=== PATIENT | female | born 1975 | race Caucasian/White ===

== ENCOUNTER → 2023-12-29 00:29 | Outpatient (CLI) | payer OTHER, SELFPAY ==
--- NOTE | 2023-12-29 | DI.MAMMO_ITS ---
Exam(s) MAMMO SCREENING EXAM: MAMMO SCREENING CLINICAL HISTORY: Z12.31 Screening, FA HX mother Breast CA 2X's. TECHNIQUE: Bilateral full field digital CC and MLO mammographic images were obtained with 3D tomosyn thesis and utilizing computer aided detection (CAD). COMPARISON: Prior outside mammograms were reviewed. FINDINGS: There has been no significant change in the appearance and distribution of the fibroglandular tissue. There are no CAD designations. There are no new spiculated masses nor malignant appearing microcalcification groups. There is no significant architectural distortion nor skin thickening-retraction. IMPRESSION: No radiographic evidence of malignancy. BI-RADS Category 1 - Negative Breast Density - Category B - Scattered areas of fibroglandular density Breast density Category C or D implies that the patient has dense breast tissue. Dense breast tissue can make it harder to find cancer on a mammogram. Dense breast tissue is also associated with an incr eased risk of breast cancer. This information about the result of the mammogram report was provided to the patient to raise their awareness. Use this report when you speak with the patient about their risks for breast cancer, which includes their family history. At that time, you may recommend additional screening tests (Ultrasoun d or MRI) as these tests may add significant information. A negative radiographic report should not delay biopsy if a dominant or clinically suspicious mass is present. Up to ten percent of cancers are not identified on mammography. A negative report may reinforce clinical impression. Adenosis and dense breasts may obscure an underlying neoplasm. False positive reports average 6 to 10%. Patient will receive a letter notifying them of these results.
--- OUTSIDE RECORDS SUMMARY | 2023-12-29 00:59 | XMS_ITS | Encounter Summary ---
Author Organization [facility] Address [address] [place] [address] Care Team Providers Care Workcell Operator Name Role Phone Taran Albert MD Primary Care Provider [phone] Encounter Details Date Type Department Care Team (Late st Contact Info) Description 06/28/2007 Results Only [facility] - Maple conversion [address] [place] [address] Ruba Bass MD [address] [place] [address] 2 [place] [address] Social History Tobacco Use Types Packs/Day Years Used Date Smoking Tobacco: Never Assessed Sex and Gender Information Value Date Recorded Sex Assigned at Not on file Gender Identity Not on file Sexual Orientation Not on file documented as of this encounter Plan of Treatment Not on file documented as of this encounter Procedures Procedure Name Priority Date/Time Associated Diagnosis Comments HPV DETECTION, HIGH RISK TYPES Routine 06/28/2007 8:17 EST CYTOPATHOLOGY Routine 06/28/2007 0:00 EST documented in this encounter Results * HUMAN PAPILLOMA VIRUS DNA TEST (06/28/2007 8:17 EST) Specimen Description Cervix, ThinPrep vial [facility] Result Negative for HPV types 16, 18, 31, 33, 35, 39, 45, 51, 52, 56, 58, 59, and 68. [facility] Report Status Final [id number] [facility] 06/28/2007 8:17 EST 07/04/2007 8:17 EST Ruba Bass MD MICROBIOLOGY - GENER AL ORDERABLES [facility] [address] [place] [address] * CYTOPATHOLOGY (06/28/2007 0:00 EST) Pathology Report: CYTOPATHOLOGY REPORT Reports generated via electronic interface contain original data; however they are lacking the format of the original report. Caution should be taken when reading/interpreti ng unformatted reports. Name: ? DAGO BARILLAS ? Accession #: ? [id number] : ? 1975 (Age: 31) ??F ?Collect Date: ? 06/28/2007 Location: ? [facility] ? Receive Date: ? 06/29/2007 Provider: ?RUBA BASS MD Copy to: ? Specimen/Source: ?ThinPrep Pap Test, Cervix/Endocervix, processed on [employer] ThinPrep Imaging System, with manual evaluation Last Menstrual Period: ? 05/25 Other: ? HPVDX - HPV testing requested regardless of diagnosis on current ThinPrep Pap test. ? SPECIMEN ADEQUACY ? Satisfactory for Evaluation - transformation zone component present - scant squamous epithelial component secondary to excessive blood GENERAL CATEGORIZATION ? Negative for Intraepithelial Lesion or Malignancy ? Document reviewed and electronically signed by: ? JUAN J Benoit(ASCP) ? Report Date: ??07/03/2007 13:48 End of Report [facility] 06/28/2007 06/29/2007 Ruba Bass MD PATHOLOGY ORDERABLES [facility] [address] [place] [address] documented in this encounter Visit Diagnoses Not on filedocumented in this encounter Care Teams Workcell Operator Relationship Specialty Start Date End Date Taran Albert MD [address] [place] [address],[address] [place] [address] PCP - General 10/22/09 documented as of this encounter
--- OUTSIDE RECORDS SUMMARY | 2023-12-29 00:59 | XMS_ITS | Encounter Summary ---
Author Organization [facility] Address [address] [place] [address] Care Team Providers Care Homeopathic Doctor Name Role Phone Taran Albert MD Primary Care Provider [phone] Encounter Details Date Type Department Care Team (Late st Contact Info) Description 11/24/2009 Results Only [facility] PRISM [phone] Jason Bass MD [address] [place] [address] [address] [place], [place] [id number] Social History Tobacco Use Types Packs/Day Years Used Date Smoking Tobacco: Never Assessed Sex and Gender Information Value Date Recorded Sex Assigned at Not on file Gender Identity Not on file Sexual Orientation Not on file documented as of this encounter Plan of Treatment Not on file documented as of this encounter Visit Diagnoses Not on filedocumented in this encounter Care Teams Homeopathic Doctor Relationship Specialty Start Date End Date Taran Albert MD [address] [place] [address] ,[address] [place] [address] PCP - General 10/22/09 documented as of this encounter
--- OUTSIDE RECORDS SUMMARY | 2023-12-29 00:59 | XMS_ITS | Clinical Summary ---
Author Organization [facility] Address [address] [place] [address] Care Team Providers Care Retail Personal Banker Name Role Phone Taran Albert MD Primary Care Provider [phone] Social History Tobacco Use Types Packs/Day Years Used Date Smoking Tobacco: Never Assessed Sex and Gender Information Value Date Recorded Sex Assigned at Not on file Gender Identity Not on file Sexual Orientation Not on file Plan of Treatment Health Maintenance Due Date Last Done Comments Hepatitis C Screen 1975 Hepatitis B Vaccine (1 of 3 - 19+ 3-dose series) 12/11 COVID-19 Vaccine ( season) 2023 Care Teams Retail Personal Banker Relationship Specialty Start Date End Date Taran Albert MD [address] [place] [address],[address] [place] [address] PCP - General 10/22/09
--- OUTSIDE RECORDS SUMMARY | 2023-12-29 00:59 | XMS_ITS | Encounter Summary ---
Author Organization [facility] Address [address] [place] [address] Care Team Providers Care Systems Requirements Planner Name Role Phone Taran Albert MD Primary Care Provider [phone] Encounter Details Date Type Department Care Team (Late st Contact Info) Description 08/23/2007 Before PRISM Converted Visit (Maple) [facility] - Maple conversion [address] [place] [address] Jason Bass MD [address] [place] [address] 2 [place] [address] Social History Tobacco Use Types Packs/Day Years Used Date Smoking Tobacco: Never Assessed Sex and Gender Information Value Date Recorded Sex Assigned at Not on file Gender Identity Not on file Sexual Orientation Not on file documented as of this encounter Plan of Treatment Not on file documented as of this encounter Procedures Procedure Name Priority Date/Time Associated Diagnosis Comments DETENTION ULTRASCREEN (INCLUDES SEQUENTIAL SCREEN) 08/23/2007 14:31 EST documented in this encounter Results * DETENTION ULTRASCREEN (08/23/2007 14:31 EST) Anatomical Region Laterality Modality Other 08/23/2007 14:3 1 EST Narrative 11/30/2008 11:01 EDT ULTRASCREEN,15426/NO RISK SCREENING Please refer to the separate [facility] report. ??Contact Maternal Medicine. Procedure Note Dre Calderón MD - 11/30/2008 ULTRASCREEN,01794/NO RISK SCREENING Please refer to the separate [facility] report. Contact Maternal Medicine. Jason Bass MD IMG [facility] ORDERABLE S documented in this encounter Visit Diagnoses Not on filedocumented in this encounter Care Teams Systems Requirements Planner Relationship Specialty Start Date End Date Taran Albert MD [address] [place] [address],[address] [place] [address] PCP - General 10/22/09 documented as of this encounter
--- OUTSIDE RECORDS SUMMARY | 2023-12-29 00:59 | XMS_ITS | Encounter Summary ---
Author Organization [facility] Address [address] [place] [address] Care Team Providers Care Group Tester Name Role Phone Taran Albert MD Primary Care Provider [phone] Encounter Details Date Type Department Care Team (Late st Contact Info) Description 08/31/2015 Results Only [facility]- PRISM [phone] Ruba Bass MD [address] [place] [address] [address] [place] [address] Social History Tobacco Use Types Packs/Day Years Used Date Smoking Tobacco: Never Assessed Sex and Gender Information Value Date Recorded Sex Assigned at Not on file Gender Identity Not on file Sexual Orientation Not on file documented as of this encounter Plan of Treatment Not on file documented as of this encounter Procedures Procedure Name Priority Date/Time Associated Diagnosis Comments PAP TEST- RESULT ONLY Routine 08/31/2015 0:00 EDT documented in this encounter Results * PAP TEST- RESULT ONLY (08/31/2015 0:00 EDT) Pathology Report: CYTOPATHOLOGY REPORT Reports generated via electronic interface contain original data; however they are lacking the format of the original report. Caution should be taken when reading/interpreti ng unformatted reports. Name: ? ERAN DAGO ? Accession #: ? [id number] ? : ? 1975 (Age: 39) ??F ?Collect Date: ? 08/31/2015 ? Location: ? [facility] ? Receive Date: ? 09/01/2015 ? Provider: RUBA BASS MD Copy to: ? Final Report SPECIMEN ADEQUACY ? Satisfactory for Evaluation - transformation zone component present GENERAL CATEGORIZATION ? Negative for Intraepithelial Lesion or Malignancy ?? Last Menstrual Period: 08/02/15 Hormonal/Contracep tive status: Intrauterine device: mirena Other: Additional clinical information: previous pap WNL: 2004, 06/26,01/27 Specimen/Source: ??Pap Test, Cervix/Endocervix, ThinPrep Imaging System with manual evaluation Document reviewed and electronically signed by: ? Dinorah Pang, CT(ASCP)(IAC) ? Report ??Date: 09/08/2015 11:42 HPV with Pap Test ? Date Ordered: ? 09/08/2015 ? Status: ?? Signed Out ?Date Complete: ? 09/10/2015 ? By: ??System Interface ? Date Reported: ? 09/10/2015 ? Interpretation RESULT: Negative for HPV. No E6 or E7 mRNA is detected from HPV types 16,18,31,33,35, 39,45,51,52,56,58, 59,66, and 68 by manual writer mediated amplification. Comments Document reviewed and electronically signed by: ? System Interface ? Report date: 09/10/2015 By the signature above, the attending physician certifies that he/she has personally conducted a gross and/or microscopic examination of the described specimens and rendered or confirmed the above diagnosis. End of Report [facility] 08/31/2015 09/01/2015 Ruba Bass MD PATHOLOGY ORDERABLES [facility] [address] [place] [address] documented in this encounter Visit Diagnoses Not on filedocumented in this encounter Care Teams Group Tester Relationship Specialty Start Date End Date Taran Albert MD [address] [place] [address],[address] [place] [phone] PCP - General 10/22/09 documented as of this encounter
--- OUTSIDE RECORDS SUMMARY | 2023-12-29 00:59 | XMS_ITS | Encounter Summary ---
Author Organization [facility] Address [address] [place] [address] Care Team Providers Care Cutter Machine Tender Name Role Phone Taran Albert MD Primary Care Provider [phone] Encounter Details Date Type Department Care Team (Late st Contact Info) Description 05/13/2020 Lab Requisition [facility] Pathology & Laboratory Medicine - [address] [address] Outr Resulting Lab, Provider Social History Tobacco Use Types Packs/Day Years Used Date Smoking Tobacco: Never Assessed Sex and Gender Information Value Date Recorded Sex Assigned at Not on file Gender Identity Not on file Sexual Orientation Not on file documented as of this encounter Plan of Treatment Scheduled Orders Name Type Priority Associated Diagnoses Orde r Schedule PAP TEST Pathology Routine Ordered: 05/13 documented as of this encounter Visit Diagnoses Not on filedocumented in this encounter Care Teams Cutter Machine Tender Relationship Specialty Start Date End Date Taran Albert MD [address] [place] [address],[address] [place] [address] PCP - General 10/22/09 documented as of this encounter
--- OUTSIDE RECORDS SUMMARY | 2023-12-29 00:59 | XMS_ITS | Encounter Summary ---
Author Organization [facility] Address [address] [place] [address] Care Team Providers Care Casting Agent Name Role Phone Taran Albert MD Primary Care Provider [phone] Encounter Details Date Type Department Care Team (Late st Contact Info) Description 09/11/2015 Results Only [facility] [phone] Ruba Bass MD [address] [place] [address] [address] [place] [address] Social History Tobacco Use Types Packs/Day Years Used Date Smoking Tobacco: Never Assessed Sex and Gender Information Value Date Recorded Sex Assigned at Not on file Gender Identity Not on file Sexual Orientation Not on file documented as of this encounter Plan of Treatment Not on file documented as of this encounter Procedures Procedure Name Priority Date/Time Associated Diagnosis Comments SURGICAL PATHOLOGY Routine 09/11/2015 9:37 EDT documented in this encounter Results * SURGICAL PATHOLOGY (09/11/2015 9:37 EDT) Pathology Report: SURGICAL PATHOLOGY REPORT Reports generated via electronic interface contain original data; however they are lacking the format of the original report. Caution should be taken when reading/interpret ing unformatted reports. Name: ? ABBEY BARILLASCA ? Accession #: ? [id number] ? : ? 1975 (Age: 39) ??F ? Collect Date: ? 09/11/2015 ? Location: ? [facility] ? Receive Date: ? 09/12/2015 ? Provider: RUBA BASS MD Copy to: ? Final Pathologic Diagnosis: A. FALLOPIAN TUBE, RIGHT, SALPINGECTOMY: - ??Fimbriated fallopian tube with full cross sections identified. B. FALLOPIAN TUBE, LEFT, SALPINGECTOMY: - ??Fimbriated fallopian tube with full cross sections identified. Document reviewed and electronically signed by: ANDRÉS POLLOCK MD Report ??Date: 09/16/2015 09:51 By the signature above, the attending physician certifies that he/she has personally conducted a gross and/or microscopic examination of the described specimens and rendered or confirmed the above diagnosis. Specimen(s) Received: A. ?R fallopian tubes B. ? L fallopian tubes Clinical History: Desires T/L, ovarian cancer risk reduction Gross Description: A. ?Received in formalin labelled with proper patient identification (initials W, R) and right fallopian tube is a fimbriated tubular structure (6.2 cm in length and 0.5 cm in diameter). ??The serosal surface is pink-gallego and glistening. ??Sectioning reveals a central pinpoint lumen. Two inbound customer service representative cross sections and one half of the fimbria are submitted as A1. B. ?Received in formalin labelled with proper patient identification (initials W, R) and left fallopian tube is a fimbriated tubular structure (4.4 cm in length and 0.5 cm in diameter). ??The serosal surface is pink-gallego and glistening. ??Sectioning reveals a central pinpoint lumen. Two inbound customer service representative cross sections and one half of the fimbria are submitted as B1. Alba Martínez 09/14/2015 9:53 AM End of Report [facility] 09/11/2015 9:37 EDT 09/12/2015 9:37 EDT Ruba Bass MD PATHOLOGY ORDERABLES [facility] [address] [place] [address] documented in this encounter Visit Diagnoses Not on filedocumented in this encounter Care Teams Casting Agent Relationship Specialty Start Date End Date Tarna Albert MD [address] [place] [address],[address] [place] [address] PCP - General 10/22/09 documented as of this encounter
--- OUTSIDE RECORDS SUMMARY | 2023-12-29 00:59 | XMS_ITS | Encounter Summary ---
Author Organization [facility] Address [address] [place] [address] Care Team Providers Care African Studies Professor Name Role Phone Taran Albert MD Primary Care Provider [phone] Encounter Details Date Type Department Care Team (Late st Contact Info) Description 06/03/2010 Results Only [facility]- PRISM [phone] Jason Bass MD [address] [place] [address] Social History Tobacco Use Types Packs/Day Years Used Date Smoking Tobacco: Never Assessed Sex and Gender Information Value Date Recorded Sex Assigned at Not on file Gender Identity Not on file Sexual Orientation Not on file documented as of this encounter Plan of Treatment Not on file documented as of this encounter Procedures Procedure Name Priority Date/Time Associated Diagnosis Comments [facility] ULTRASCREEN (INCLUDES SEQUENTIAL SCREEN) 06/23/2010 14:31 EST documented in this encounter Results * [facility] ULTRASCREEN (06/23/2010 14:31 EST) Anatomical Region Laterality Modality Other 06/23/2010 14:3 1 EST 06/23/2010 15:08 EST Narrative 06/23/2010 15:08 EST Indication: Nuchal translucency screening. History: Age: 34 years. : 4 Para: 1. Previous pregnancies: Children born at term: 1. Abortions: 2. Living children: 1. Current : Pre- data: Weight 154 lbs. Height 5 ft 3 ins. BMI 27.3. Dating: Stated EDC: ??EDC: 12/26/2010 GA by stated EDC: 13w3d Current Scan on: 06/23/2010 EDC: 12/25/2010 GA by current scan: 13w4d Best Overall Assessment: 06/23/2010 EDC: 12/26/2010 Assessed GA: 13w3d The calculation of the gestational age by current scan was based on CRL. The Best Overall Assessment is based on the stated EDC. General Evaluation: heart activity: Present. heart rate: 149 bpm. movement: present. First Trimester Scan: Fuentes gestation. Biometry: CRL 74.7 mm 57th% 13w4d (12w3d to 14w5d) NT 2.60 mm Additional Markers for Risk Assessment: Nasal bone present. ?? Tricuspid flow not examined. ??Ductus Venosus (a-wave): Not examined. Report Summary: Impression: NOTE: This study was ordered as an NT ONLY so maternal and anatomy assessments were not performed. [id number] Nuchal translucency measurement This is a fuentes gestation. Nuchal translucency is 2.6 mm. Omphalocele is not present. Note that ACOG Practice Bulletin 77 points out that the inclusion of second trimester serum markers improve detection rates for Down syndrome; however if you wish to combine second trimester analytes, you must send the serum to [facility] at 15-16 weeks'. They will reanalyze the results including both first and second trimester serum as well as nuchal translucency and maternal age. If you do not wish to include second trimester serum for aneuploidy screening, you may still send serum to [facility] for MSAFP alone to screen for neural tube defects and other obstetrics outcomes associated with an elevated MSAFP. Recommendations: Follow-up as clinically indicated. Procedure Note 06/23/2010 Indication: Nuchal translucency screening. History: Age: 34 years. : 4 Para: 1. Previous pregnancies: Children born at term: 1. Abortions: 2. Living children: 1. Current : Pre- data: Weight 154 lbs. Height 5 ft 3 ins. BMI 27.3. Dating: Stated EDC: EDC: 12/26/2010 GA by stated EDC: 13w3d Current Scan on: 06/23/2010 EDC: 12/25/2010 GA by current scan: 13w4d Best Overall Assessment: 06/23/2010 EDC: 12/26/2010 Assessed GA: 13w3d The calculation of the gestational age by current scan was based on CRL. The Best Overall Assessment is based on the stated EDC. General Evaluation: heart activity: Present. heart rate: 149 bpm. movement: present. First Trimester Scan: Fuentes gestation. Biometry: CRL 74.7 mm 57th% 13w4d (12w3d to 14w5d) NT 2.60 mm Additional Markers for Risk Assessment: Nasal bone present. Tricuspid flow not examined. Ductus Venosus (a-wave): Not examined. Report Summary: Impression: NOTE: This study was ordered as an NT ONLY so maternal and anatomy assessments were not performed. [address] Nuchal translucency measurement This is a fuentes gestation. Nuchal translucency is 2.6 mm. Omphalocele is not present. Note that ACOG Practice Bulletin 77 points out that the inclusion of second trimester serum markers improve detection rates for Down syndrome; however if you wish to combine second trimester analytes, you must send the serum to [facility] at 15-16 weeks'. They will reanalyze the results including both first and second trimester serum as well as nuchal translucency and maternal age. If you do not wish to include second trimester serum for aneuploidy screening, you may still send serum to [facility] for MSAFP alone to screen for neural tube defects and other obstetrics outcomes associated with an elevated MSAFP. Recommendations: Follow-up as clinically indicated. Jason Bass MD IMG [facility] ORDERABLE S documented in this encounter Visit Diagnoses Not on filedocumented in this encounter Care Teams African Studies Professor Relationship Specialty Start Date End Date Taran Albert MD [address] [place] [address],[address] [place] [address] PCP - General 10/22/09 documented as of this encounter
--- OUTSIDE RECORDS SUMMARY | 2023-12-29 00:59 | XMS_ITS | Encounter Summary ---
Author Organization [facility] Address [address] [place] [address] Care Team Providers Care Global Marketing Specialist Name Role Phone Taran Albert MD Primary Care Provider [phone] Encounter Details Date Type Department Care Team (Late st Contact Info) Description 10/15/2007 Before PRISM Converted Visit (Maple) [facility] - Maple conversion [address] [place] [address] Jason Bass MD [address] [place] [address] [address] [place] [address] Social History Tobacco Use Types Packs/Day Years Used Date Smoking Tobacco: Never Assessed Sex and Gender Information Value Date Recorded Sex Assigned at Not on file Gender Identity Not on file Sexual Orientation Not on file documented as of this encounter Plan of Treatment Not on file documented as of this encounter Procedures Procedure Name Priority Date/Time Associated Diagnosis Comments SKILLED NURSING ROUTINE 10/15/2007 11:03 EDT documented in this encounter Results * SKILLED NURSING ROUTINE (10/15/2007 11:03 EDT) Anatomical Region Laterality Modality Other 10/15/2007 11:0 3 EDT Narrative 11/30/2008 14:06 EDT ROUTINE,46104/NO RISK SCREENING/BMI 25.1 Please refer to the separate [facility] report. ??Contact Maternal Medicine. Procedure Note Ciera Reagan MD - 11/30/2008 ROUTINE,22723/NO RISK SCREENING/BMI 25.1 Please refer to the separate [facility] report. Contact Maternal Medicine. Jason Bass MD IMG SKILLED NURSING ORDERABLE S documented in this encounter Visit Diagnoses Not on filedocumented in this encounter Care Teams Global Marketing Specialist Relationship Specialty Start Date End Date Taran Albert MD [address] [place] [address],[address] [place] [phone] PCP - General 10/22/09 documented as of this encounter
--- OUTSIDE RECORDS SUMMARY | 2023-12-29 00:59 | XMS_ITS | Encounter Summary ---
Author Organization [facility] Address [address] [place] [address] Care Team Providers Care House Carpenter Helper Name Role Phone Taran Albert MD Primary Care Provider [phone] Encounter Details Date Type Department Care Team (Latest Contact Info) Description 09/11/2015 16:58 EDT - 09/11/2015 23:59 EDT Hospital Encounter [address] [address] Unknown, Provider, Discharge Disposition: Home or Self Care Social History Tobacco Use Types Packs/Day Years Used Date Smoking Tobacco: Never Assessed Sex and Gender Information Value Date Recorded Sex Assigned at Not on file Gender Identity Not on file Sexual Orientation Not on file documented as of this encounter Discharge Disposition Disposition Code Departure Means Destination Home or Self Custodial documented in this encounter Plan of Treatment Not on file documented as of this encounter Visit Diagnoses Not on filedocumented in this encounter Care Teams House Carpenter Helper Relationship Specialty Start Date End Date Taran Albert MD [address] [place] [address],[address] [place] [address] PCP - General 10/22/09 documented as of this encounter
--- OUTSIDE RECORDS SUMMARY | 2023-12-29 00:59 | XMS_ITS | Referral Summary ---
Author Organization [facility] Address [address] [place] [address] Care Team Providers Care Bonding And Composite Fabricator Name Role Phone Taran Albert MD Primary Care Provider [phone] Social History Tobacco Use Types Packs/Day Years Used Date Smoking Tobacco: Never Assessed Sex and Gender Information Value Date Recorded Sex Assigned at Not on file Gender Identity Not on file Sexual Orientation Not on file Plan of Treatment Not on file Care Teams Bonding And Composite Fabricator Relationship Specialty Start Date End Date Taran Albert MD [address] [place] [address],[address] [place] [address] PCP - General 10/22/09
--- OUTSIDE RECORDS SUMMARY | 2023-12-29 00:59 | XMS_ITS | Encounter Summary ---
Author Organization [facility] Address [address] [place] [address] Care Team Providers Care Car Loader Name Role Phone Taran Albert MD Primary Care Provider [phone] Encounter Details Date Type Department Care Team (Late st Contact Info) Description 02/14/2011 Results Only [facility] Laboratory Services - [facility] ([facility] [place]) [address] [place], [place] [id number] Jason Bass MD [address] [place] [address] [address] [place] [address] Social History Tobacco Use Types [...] Diagnosis Comments PAP TEST- RESULT ONLY Routine 02/14/2011 0:00 EDT documented in this encounter Results * PAP TEST- RESULT ONLY (02/14/2011 0:00 EDT) Pathology Report: CYTOPATHOLOGY REPORT ? Reports generated via electronic interface contain original data; ? however they are lacking the format of the original report. ? Caution should be taken when reading/interpreti ng unformatted reports. ? Name: ? ERAN, DAGO A ? Accession #: ? [id number] ? : ? 1975 (Age: 35) ??F ?Collect Date: ? 02/14/2011 ? Location: ? [facility] ? Receive Date: ? 02/15/2011 ? Provider: PETER BROWN MD ? Copy to: ? Final Report ? SPECIMEN ADEQUACY ? Satisfactory for Evaluation ? - transformation zone component present ? GENERAL CATEGORIZATION ? Negative for Intraepithelial Lesion or Malignancy ? Menstural/Pregnanc y Status: ??Post ? Other: Additional clinical information: previous pap WNL 06/26 ? Specimen/Source: ??Pap Test, Cervix/Endocervix, ThinPrep Imaging System with ? manual evaluation ? Document reviewed and electronically signed by: ? Enrique Stephens, CT(ASCP) ? Report ??Date: 02/22/2011 08:04 ? HPV with Pap Test ? Date Ordered: ? 02/22/2011 ? Status: ?? Signed Out ?Date Complete: ? 02/24/2011 ? By: ??System Interface ? Date Reported: ? 02/24/2011 ? Interpretation ? RESULT: Negative for HPV types 16, 18, 31, 33, 35, 39, 45, 51, 52, ? 56, 58, 59, and 68. ? Comments ? Document reviewed and electronically signed by: ? System Interface ? Report date: 02/24/2011 ? By the signature above, the attending physician certifies that he/she has ? personally conducted a gross and/or microscopic examination of the described ? specimens and rendered or confirmed the above diagnosis. ? End of Report ? [facility] 02/14/2011 02/15/2011 Jason Bass MD PATHOLOGY ORDERABLES [facility] [address] [place] [address] documented in this encounter Visit Diagnoses Not on filedocumented in this encounter Care Teams Car Loader Relationship Specialty Start Date End Date Taran Albert MD [address] [place] [address],[address] [place] [address] PCP - General 10/22/09 documented as of this encounter
== END ==
PROVIDERS: Visit Provider Family Medicine
DX: Z12.31 Encounter for screening mammogram for malignant neoplasm of breast (principal)
CPT/HCPCS: 77063; 77067

== ENCOUNTER 2024-08-16 07:49 | Day surgery (SDC) | payer BC, SELFPAY ==
[2024-08-16 08:01] VITALS: BP 117/93; PULSE 115; RESP 16; TEMP 36.5; O2SAT 95
[2024-08-16] MEDS: Lactated Ringers 1,000 ML 80 ML IV (08:24)
--- NOTE | 2024-08-16 09:01 | ANES.PREOP_ITS ---
General Info Date of Service Date Performed: 08/16/24 Height: 5 ft 6 in Weight: 76.4 kg Body Mass Index (BMI): 27.1 Surgical Procedure: Operation Date: 08/16/24 09:05 Proposed Procedure Side Surgeon p Colonoscopy Jason Clarke MD Meds Allergies and Home Medications Allergies Allergy/AdvReac Type Severity Reaction Status Date / Time No Known Allergies Allergy Verified 08/16/24 08:09 Home Medication ?Medication ?Instructions ?Recorded sertraline 25 mg tablet 25 mg PO DAILY 07/11/24 bisacodyl 5 mg tablet,delayed 5 mg PO ONCE colonscopy bowel prep 07/29/24 release (Dulcolax (bisacodyl)) #4 tabs polyethylene glycol 3350 17 238 g PO ONCE colonoscopy prep 07/29/24 gram/dose oral powder #238 grams Current Visit Medications: Current Medications Generic Name Dose Route Start Last Admin Trade Name Freq PRN Reason Stop Dose Admin Ringer's Solution 1,000 mls @ 80 mls/hr 08/16/24 06:00 08/16/24 08:24 IV 08/16/24 23:59 80 mls/hr INFUSION NAVNEET Administration IV Miscellaneous Supplies 1 each 08/16/24 06:00 Iv Access IV 08/16/24 23:59 DIRECTED NAVNEET Sodium Chloride 0 ml 08/16/24 06:00 Normal Saline Flush 10 Ml Syr IV 08/16/24 23:59 PRN PRN Sodium Chloride 0 ml 08/16/24 06:00 Normal Saline 10 Ml Vial IJ 08/16/24 23:59 DIRECTED PRN Sterile Water 0 ml 08/16/24 06:00 Water,Injection,Sterile 10 Ml Vial IJ 08/16/24 23:59 DIRECTED PRN PFSH Active Problems Active Problems: Problem Status Onset Code Obsessive compulsive disorder Acute F42.9 Adult attention deficit hyperactivity disorder Acute F90.9 Anxiety Chronic F41.9 Medical History Medical History Moderate recurrent major depression Chronic maxillary sinusitis Family history of breast cancer in mother Surgical History Surgical History History of tubal ligation Tobacco Smoking/Tobacco Use Status: Never Alcohol Alcohol Intake: never Substance Use Substance use: Never Substance use type: does not use Vital Signs and Lab Results Vital Signs Most Recent Vital Signs in EMR: Most Recent Vital Signs Temp Pulse Resp BP Pulse Ox 36.5 C 115 H 16 117/93 H 95 08/16/24 08:01 08/16/24 08:01 08/16/24 08:01 08/16/24 08:01 08/16/24 08:01 Point of Care Results Point of Care Results: POC- Test(urine) Negative 08/16/24 08:10 Lab Results Blood Type / Crossmatch: No Data to Display Complete Blood Count: No Data to Display Complete Metabolic Panel: No Data to Display Liver Function Panel: 2 No Data to Display Coagulation Panel: No Data to Display Cardiac Panel: No Data to Display Arterial Blood Gas: No Data to Display Venous Blood Gas: No Data to Display Pancreas Panel: No Data to Display Thyroid Panel: No Data to Display Infectious Disease: No Data to Display Blood Cultures: No Data to Display Toxicology Panel: No Data to Display Panel: No Data to Display Anesthesia Assessment and Plan Anesthesia History Personal History: No History of Anesthesia Complications Family History: No Family History of Anesthesia Complications Exercise Tolerance Exercise Tolerance: Metabolic Equivalents>4 Pertinent Negatives Pertinent Negatives: No Symptoms of GERD Cardiac & Pulmonary Exam Cardiac Exam: Normal S1/S2 Heart Sounds Pulmonary Exam: Clear Bilateral Breath Sounds Implantable Cardiac Device Does patient have a Pacemaker or an ICD?: No Airway Exam Known Difficult Airway: No Mallampati Class: 2 Mouth Opening: Normal (> 3cm) Thyromental Distance: Greater than 3 cm Neck Range of Motion: Full ROM Neck Circumference: Normal Teeth Condition: Normal Dentition ASA Classification ASA Score: ASA 2 Emergency Case?: No NPO Status NPO Status: NPO Clears >2 hours, Solids >8 hours Status Status: Negative HCG Anesthesia Plan Resuscitation Status: Full Code Anesthesia Technique: General Anesthesia Airway Planned: Natural Airway Monitors Used: Standard Monitors
[2024-08-16 09:04] VITALS: BMI 27.1
--- NOTE | 2024-08-16 09:16 | W.COLOREPORT ---
Date of service: 08/16/24 Time of Service: 09:16 Colonoscopy Report Procedure Description: Postop callPROCEDURES PERFORMED: 1. Colonoscopy with cold forceps polypectomy checking x2 PREOPERATIVE DIAGNOSIS: screening colonoscopy POSTOPERATIVE DIAGNOSIS: rectal polyps SURGEON: Car Clarke MD INDICATION for procedure: The patient is a 48-year-old woman who does not have any symptoms of concern. She thinks her grandmother might have had colon polyps, but she is not sure. She has never had a colonoscopy before. FINDINGS: Normal terminal ileum. No obvious diverticular disease anywhere. No colon polyps. No inflammation. In the rectum two small 2-3 mm sessile polyps were removed with cold forceps technique. No obvious hemorrhoid disease. SURVEILLANCE interval/FOLLOW-UP: 3 - 10 years. If sessile serrated or villous histology, then in 3 years. Otherwise, 7-10 year followup is acceptable. SPECIMENS: yes EBL: Minimal COMPLICATIONS: None QUALITY of prep: Excellent Procedure in detail: The patient gave written consent and was in agreement with the indications, the potential risks as well as the benefits of the procedure. They were taken to the endoscopy suite and laid in the left lateral decubitus position. A timeout was performed and anesthesia was administered which was tolerated well. I started the procedure. Digital rectal and visual examination was performed and grossly within normal limits. A well-lubricated flexible colonoscope was then introduced and passed without any notable difficulty all the way to the cecum identified by the ileocecal valve and the appendiceal orifice. The terminal ileum was intubated and looked normal. The scope was then slowly withdrawn with the above-noted findings. The patient tolerated the procedure well and was taken to the PACU in hemodynamically stable condition.
--- NOTE | 2024-08-16 09:17 | W.PM.DSUDISC ---
Date of service: 08/16/24 Discharge Plan Disposition Patient Disposition: Home Condition: Good Discharge Details Attending Provider: Jason Clarke Primary Care Provider: Taran Albert Home Meds and New Rx's Prescriptions: No Action polyethylene glycol 3350 17 gram/dose powder 238 g PO ONCE Qty: 238 0RF Rx Instructions: take per colonoscopy instructions bisacodyl [Dulcolax (bisacodyl)] 5 mg tablet,delayed release (DR/EC) 5 mg PO ONCE Qty: 4 0RF Rx Instructions: take per colonoscopy instructions sertraline 25 mg tablet 25 mg PO DAILY Discharge Instructions Additional Instructions: FINDINGS: Overall your colon is very healthy. 2 small polyps were removed from your rectum. They are nothing to worry about and this is why we do the colonoscopies. They will get tested and depending on what those test results show will dictate when you should get your next colonoscopy. Activity:: Activity as Tolerated Diet:: As Tolerated
--- NOTE | 2024-08-16 09:34 | BOWEL_PTH ---
PATIENT: Padmini Mckeon LOC: [facility] U#:[id number] AGE/SX: 48/F ROOM: RE08/16/[address]: Jason Clarke : 1975 BED: DIS: 08/16/2024 SPEC #: [id number] RECD: 08/16/24 11:52 STATUS: LETI REJoanie #: [id number] NAN: 08/16/24 09:[address]: Jason Clarke DEPT: Surgical Specimen RECD BY: Mariah Holden ENTERED: 08/16/24 11:53 SP TYPE: Bowel OTHR DR: Taran Albert Tissues: 1 - BIOPSY BOWEL 2 - BIOPSY BOWEL Procedures: GROSS AND MICRO LEVEL 4 Comments: [id number]
[2024-08-16 09:43] VITALS: BP 102/67; PULSE 83; RESP 18; TEMP 36.3; O2SAT 96
--- NOTE | 2024-08-16 10:16 | W.ANESPOSTOP ---
Postoperative Evaluation Date, Time and Location Date Performed: 08/16/24 Time Performed: 09:55 Patient Location: Day Surgery Unit Vital Signs Most Recent Imported Vital Signs: Most Recent Vital Signs Temp Pulse Resp BP Pulse Ox 36.3 C L 83 18 102/67 96 08/16/24 09:43 08/16/24 09:43 08/16/24 09:43 08/16/24 09:43 08/16/24 09:43 Pain Score Most Recent Pain Score: Most Recent Pain Score Pain Level 0 08/16/24 09:43 Assessment Mental Status: Awake (Alert & Oriented to Patient Baseline) Airway and Respiratory Function: Patent airway with normal (patient baseline) respiratory exam Cardiovascular Function: Hemodynamically Stable Hydration Status: Adequately Hydrated Nausea & Vomiting: No Nausea or Vomiting Pain: Pt. Denies Any Pain Peripheral Nerve Block: Patient did not receive a nerve block
== END 2024-08-16 10:40 | disposition home or self-care (01) ==
PROVIDERS: PCP Family Medicine; Visit Provider Student in an Organized Health Care Education/Training Program
PROC: 0DJD8ZZ Inspection of Lower Intestinal Tract, Via Natural or Artificial Opening Endoscopic (ICD-10-PCS; CPT 45378; principal; 2024-08-16 09:00)
DX: Z12.11 Encounter for screening for malignant neoplasm of colon (principal); K62.1 Rectal polyp
CPT/HCPCS: 45380; 88305; J2704